=== PATIENT | male | born 1925 | race Caucasian/White ===

== ENCOUNTER 2016-06-29 11:11 | Emergency (ER) | payer OTHER ==
[~2016-06-29] VITALS: Ht 188 cm; Wt 98.0 kg
--- NOTE | 2016-06-29 11:26 | ED MVC/FALL/TRAUMA COMPLAINT ---
History of Present Illness General Chief Complaint: Fall Stated Complaint: FELL LAST NIGHT, HIT HEAD, DENIES LOC, Source: patient Exam Limitations: no limitations Vital Signs & Intake/Output Vital Signs & Intake/Output Vital Signs Date Time Temp Pulse Resp B/P Pulse O2 O2 Flow FiO2 Ox Delivery Rate 06/29 1212 94 Room Air 06/29 1118 97.3 72 20 125/75 94 Room Air Allergies Coded Allergies: No Known Allergies (06/29/16) Reconcile Medications Amlodipine Besylate 5 MG TABLET 1 TAB PO DAILY HIGH BLOOD PRESSURE (Reported) Hydrochlorothiazide 12.5 MG TABLET 1 TAB PO DAILY HIGH BLOOD PRESSURE ( Reported) Metoprolol Tartrate 50 MG TABLET 1 TAB PO BID HIGH BLOOD PRESSURE (Reported) Simvastatin (Simvastatin*) 80 MG TABLET 1 TAB PO QPM HIGH CHOLESTROL ( Reported) Warfarin Sodium 5 MG TABLET 1 TAB PO EOD BLOOD THINNER (Reported) Warfarin Sodium (Coumadin) 7.5 MG TABLET 1 TAB PO EOD BLOOD THINNER (Reported ) Triage Note: TRIAGE: PT TO ER S/P FALL LAST NIGHT. 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 STATES FELT DIZZY PRIOR TO FALLING FROM "CONSTANTLY BENDING OVER" X APPROXIMATELY 2 MINUTES. DENIES LOC. MINOR SCRAPES AND ABRASIONS TO FACE AND FOREHEAD AREA. DENIES DIZZINESS AT PRESENT. TAKES COUMADIN R/T HX AFIB. Triage Nurses Notes Reviewed? 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 He felt a little bit dizzy and then hit his head and knee. Patient was able to get off the ground and get to bed. No loss of consciousness. Today he was talking to a friend who told him to go to the hospital for evaluation because he is on blood thinners which puts him at risk for an intracranial bleed. Patient denies headache, blurred vision, dizziness, ataxia, nause or vomiting. He is unsure of when his last tetanus was. Past History Travel History Traveled to [place] past 21 day No Medical History Any Pertinent Medical History? see below for history Neurological: NONE EENT: NONE Cardiovascular: AFIB, hypertension, hyperlipidemia Respiratory: NONE Gastrointestinal: NONE Hepatic: NONE Renal: NONE Musculoskeletal: NONE Psychiatric: NONE Endocrine: NONE Blood Disorders: NONE Cancer(s): NONE RIVET TESTER/Reproductive: NONE Surgical History Surgical History: non-contributory Psychosocial History What is your primary language Cymraes Tobacco Use: Never used ETOH Use: occasional use Illicit Drug Use: denies illicit drug use Family History Hx Contributory? No Review of Systems Review of Systems Constitutional: Denies: chills, fever. Eyes: Denies: blindness. Ears, Nose, Throat, Mouth: Denies: ear pain. Respiratory: Denies: cough, short of breath. Cardiovascular: Denies: chest pain, palpitations, peripheral edema, syncope. Gastrointestinal/Abdominal: Denies: abdominal pain, nausea, vomiting. Genitourinary: Denies: discharge, dysuria. Musculoskeletal: Denies: joint pain, joint swelling, muscle pain, muscle stiffness. Neurological/Psychological: Denies: ataxia, confusion, numbness. Physical Exam Physical Exam General Appearance: well developed/nourished, alert, mild distress Head: FOREHEAD ABRASIONS Eyes: Bilateral: normal appearance, PERRL, EOMI. Ears, Nose, Throat, Mouth: hearing grossly normal, moist mucous membrane Neck: normal inspection, supple, full range of motion Respiratory: normal breath sounds, chest non-tender, no respiratory distress Cardiovascular: regular rate/rhythm Peripheral Pulses: 2+ brachial (L), 2+ radial (R), 2+ radial (L) Gastrointestinal: soft, non-tender Extremities: FROM X4 SMALL ABRASION TO LEFT KNEE - NO BRUISING OR EDEMA Core Measures ACS in differential dx? No Severe Sepsis Present: No Septic Shock Present: No Progress Differential Diagnosis: C/T/L spine injury, ICH, abrasions, KNEE CONTUSION/ SPRAIN Plan of Care: Orders Procedure Date/time Status CT HEAD WO IV CONTRAST 06/[address] CERV SPINE WO IV CONTRAST 06/29 1137 Active Current Medications Sig/Francois Start time Last Medication Dose Stop Time Status Admin Tetanus/Diphtheria 0.5 ML ONCE ONE 06/29 1245 UNVr Toxoids Adsorbed 06/29 1246 (Decavac) Diagnostic Imaging: Viewed by Me: CT Scan. Discussed w/RAD: CT Scan. Comments: PATIENT: NIA LERMA PRESENT AGE: 89 PATIENT ACCOUNT NO: [id number] : [birth year] LOCATION: [facility] ORDERING PHYSICIAN: SILVER MADRIGAL MD SERVICE DATE: 06/29/16 EXAM TYPE: CAT - CT CERV SPINE WO IV CONTRAST; CT HEAD WO IV CONTRAST EXAMINATION: CT OF THE HEAD WITHOUT CONTRAST CT OF THE CERVICAL SPINE WITHOUT CONTRAST CLINICAL INFORMATION: Head injury. Fall yesterday. On Coumadin. COMPARISON: None. TECHNIQUE: Contiguous axial imaging was performed from the skull base to vertex without intravenous administration of contrast. Volumetric, multidetector CT imaging of the cervical spine from the skull base to the thoracic inlet was also performed with coronal and sagittal reformations obtained on the acquisition workstation. DLP: 914.83 mGy-cm. FINDINGS: CT HEAD: There is no evidence of acute intracranial hemorrhage or territorial infarction. No abnormal mass-effect or midline shift is seen. Soto to white matter differentiation is well preserved. No extra-axial fluid collections are identified. The ventricles are normal in size. Mild periventricular deep white matter low-attenuation is seen, consistent with ischemic small vessel disease. Calcification of the cavernous portions of the carotid arteries and of the vertebrobasilar arteries is seen. The osseous structures and soft tissues are normal. The mastoid air cells and visualized portions of the paranasal sinuses are well-aerated. The patient is status post bilateral ocular lens extractions. CT CERVICAL SPINE: Normal alignment with no evidence of acute fracture, dislocation or abnormal prevertebral soft tissue swelling. Moderate degenerative disc disease at C3-C4 down to C6-C7 and also involving T1-T2. Mild degenerative disc disease at remaining cervical levels. Moderate hypertrophic changes seen at the atlantoaxial articulation, which otherwise appears intact. Mild facet arthropathy seen, most prominent at C2-C3 and C7-T1 Craniocervical junction is intact. IMPRESSION: 1. No acute intracranial pathology. Specifically, no evidence of intracranial hemorrhage. 2. Mild periventricular ischemic small vessel disease. 3. Bony calvarium and cervical spine intact. No acute fracture. 4. Moderate degenerative changes in the cervical spine. DICTATED BY: AKBAR ARCE MD DATE/TIME DICTATED:06/29/161219 [employer]:CHE DATE/TIME TRANSCRIBED:03/12/17 / 1220 CONFIDENTIAL, DO NOT COPY WITHOUT APPROPRIATE AUTHORIZATION. <Electronically signed in Other Vendor System> SIGNED BY: AKBAR ARCE MD 1246 Departure Departure Time of Disposition: 1249 Disposition: HOME OR SELF CARE Condition: Stable Clinical Impression Primary Impression: Head injury Referrals: MARCIE WU,ANSON Tadeo (PCP/Family) Additional Instructions: Follow up with your doctor in the office. Return to the ER for any headache, blurred vision, dizziness, chest pain or palpitations. Place topical antibiotic over the wounds to prevent infection. Departure Forms: Customer Survey General Discharge Information
[2016-06-29] MEDS ORDERED: WARFARIN SODIUM5 M1 PO (12:03)
[2016-06-29] MEDS ORDERED: COUMADIN7.5 M1 PO (12:04)
[2016-06-29] MEDS ORDERED: HYDROCHLOROTH12.5 M2 PO (12:05)
[2016-06-29] MEDS ORDERED: AMLODIPINE BESYL5 M1 PO (12:05)
[2016-06-29] MEDS ORDERED: SIMVASTATIN80 M1 PO (12:05)
[2016-06-29] MEDS ORDERED: METOPROLOL TART50 M1 PO (12:06)
--- NOTE | 2016-06-29 12:46 | CT SCAN REPORT ---
EXAMINATION: CT OF THE HEAD WITHOUT CONTRAST CT OF THE CERVICAL SPINE WITHOUT CONTRAST CLINICAL INFORMATION: Head injury. Fall yesterday. On Coumadin. COMPARISON: None. TECHNIQUE: Contiguous axial imaging was performed from the skull base to vertex without intravenous administration of contrast. Volumetric, multidetector CT imaging of the cervical spine from the skull base to the thoracic inlet was also performed with coronal and sagittal reformations obtained on the acquisition workstation. DLP: 914.83 mGy-cm. FINDINGS: CT HEAD: There is no evidence of acute intracranial hemorrhage or territorial infarction. No abnormal mass-effect or midline shift is seen. Soto to white matter differentiation is well preserved. No extra-axial fluid collections are identified. The ventricles are normal in size. Mild periventricular deep white matter low-attenuation is seen, consistent with ischemic small vessel disease. Calcification of the cavernous portions of the carotid arteries and of the vertebrobasilar arteries is seen. The osseous structures and soft tissues are normal. The mastoid air cells and visualized portions of the paranasal sinuses are well-aerated. The patient is status post bilateral ocular lens extractions. CT CERVICAL SPINE: Normal alignment with no evidence of acute fracture, dislocation or abnormal prevertebral soft tissue swelling. Moderate degenerative disc disease at C3-C4 down to C6-C7 and also involving T1-T2. Mild degenerative disc disease at remaining cervical levels. Moderate hypertrophic changes seen at the atlantoaxial articulation, which otherwise appears intact. Mild facet arthropathy seen, most prominent at C2-C3 and C7-T1 Craniocervical junction is intact. IMPRESSION: 1. No acute intracranial pathology. Specifically, no evidence of intracranial hemorrhage. 2. Mild periventricular ischemic small vessel disease. 3. Bony calvarium and cervical spine intact. No acute fracture. 4. Moderate degenerative changes in the cervical spine.
[2016-06-29 13:12] VITALS: BP 134/71
== END 2016-06-29 13:39 ==
LOC: ERH 11:11
DX: S09.90XA Unspecified injury of head, initial encounter (principal); S80.212A Abrasion, left knee, initial encounter; W19.XXXA Unspecified fall, initial encounter; Y93.89 Activity, other specified; Y92.9 Unspecified place or not applicable
CPT/HCPCS: 90471